=== PATIENT | female | born 1965 | race Caucasian/White ===

== ENCOUNTER 2018-07-29 09:20 | Day surgery (SDC) | payer BC ==
[2018-07-29 09:30] VITALS: BP 183/99
[2018-07-29] MEDS ORDERED: LEVO50TA8 PO (09:50)
[2018-07-29] MEDS ORDERED: CHLO25TA10 PO (09:51)
[2018-07-29] MEDS ORDERED: fentaNYL/PF 50MCG/1 ML 2ML syringe ONE (09:53)
[2018-07-29] MEDS ORDERED: MIDAZolam 5mg/5ml vial ONE (09:53)
[2018-07-29 10:47] VITALS: BP 141/82
[2018-07-29 10:57] VITALS: BP 137/78
[2018-07-29 11:07] VITALS: BP 130/77
[2018-07-29 11:17] VITALS: BP 128/84
== END 2018-07-29 11:25 | disposition home or self-care (01) ==
LOC: GI LAB 09:20
PROVIDERS: ATTEND Internal Medicine Gastroenterology
DX: Z12.11 Encounter for screening for malignant neoplasm of colon (principal); K51.40 Inflammatory polyps of colon without complications; K64.8 Other hemorrhoids; K63.89 Other specified diseases of intestine
CPT/HCPCS: 45380; 99152; 99153; J2250; J3010; J7030; A4620